=== PATIENT | male | born 1975 | race Two or more races ===

== ENCOUNTER 2018-08-03 16:51 | Inpatient (IN) | payer MEDICAID ==
[~2018-08-03] VITALS: Ht 175.3 cm; Wt 142.1 kg
[2018-08-03 16:55] VITALS: BP 124/67
[2018-08-03] MEDS ORDERED: Vancomycin 1.5gm/D5W 250ml 250 ML IVPB ONE ×2 (18:30→22:45)
[2018-08-03 19:33] VITALS: BP 117/63
[2018-08-03 19:37] LABS: BASOPHILS % (AUTO) 0.6 % (0.0-2.0); EOSINOPHILS % (AUTO) 1.9 % (0.0-3.0); HEMATOCRIT 39.7 % (42.0-52.0); HEMOGLOBIN 13.4 G/DL (14.2-18.0); LYMPHOCYTES % (AUTO) 19.6 % (20.0-45.0); MEAN CORPUSCULAR VOLUME 91 FL (80-99); MONOCYTES % (AUTO) 5.9 % (1.0-10.0); PLATELET COUNT 251 K/UL (150-450); RED BLOOD COUNT 4.34 M/UL (4.70-6.10); RED CELL DISTRIBUTION WIDTH 11.8 % (11.6-14.8); WHITE BLOOD COUNT 9.6 K/UL (4.8-10.8)
[2018-08-03 19:40] LABS: APPEARANCE,URINE SLIGHTLY CLOUDY; BILIRUBIN, URINE 1+ (NEGATIVE); COLOR,URINE BROWN; GLUCOSE, URINE (UA) NEGATIVE (NEGATIVE); KETONES,URINE 1+ (NEGATIVE); LEUKOCYTE ESTERASE ,URINE 1+ (NEGATIVE); NITRITE,URINE NEGATIVE (NEGATIVE); PH,URINE 5 (4.5-8.0); PROTEIN,URINE 2+ (NEGATIVE); UROBILINOGEN,URINE 8 MG/DL (0.0-1.0)
[2018-08-03 19:47] LABS: ANION GAP 3 mmol/L (5-15); BLOOD UREA NITROGEN 11 mg/dL (7-18); CALCIUM 8.7 MG/DL (8.5-10.1); CARBON DIOXIDE 34 MMOL/L (21-32); CHLORIDE 104 MMOL/L (98-107); CREATININE 0.7 MG/DL (0.55-1.30); POTASSIUM 3.9 MMOL/L (3.5-5.1); SODIUM 141 MMOL/L (136-145)
[2018-08-03 19:52] LABS: ALANINE AMINOTRANSFERASE 40 U/L (12-78); ALBUMIN 2.5 G/DL (3.4-5.0); ALBUMIN/GLOBULIN RATIO 0.7 (1.0-2.7); ALKALINE PHOSPHATASE 75 U/L (46-116); ASPARTATE AMINO TRANSFERASE 56 U/L (15-37); BILIRUBIN,TOTAL 0.3 MG/DL (0.2-1.0)
[2018-08-03 20:48] VITALS: BP 122/76
--- NOTE | 2018-08-03 22:01 | Emergency Room Report ---
History of Present Illness General Chief Complaint: Pain Source: Patient, EMS Present Illness HPI 43-year-old male presents to ED for evaluation. Coming from the streets with testicular pain and swelling 5 days. States he cut his testicle on a barbed fence while climbing it. States there is persistent pain and swelling to the scrotum since. 9 out of 10, throbbing, nonradiating. States he went to another emergency room twice since the injury and was discharged. Denies fevers or chills. No other aggravating relieving factors. Denies any other associated symptoms Allergies: Coded Allergies: No Known Allergies (Unverified , 08/03/18) Patient History Past Medical History: none Past Surgical History: none Pertinent Family History: none Social History: Denies: smoking, alcohol use, drug use Immunizations: UTD Reviewed Nursing Documentation: PMH: Agreed; PSxH: Agreed Nursing Documentation-PMH Past Medical History: No Stated History Review of Systems All Other Systems: negative except mentioned in HPI Physical Exam Vital Signs Date Time Temp Pulse Resp B/P (MAP) Pulse Ox O2 Delivery O2 Flow Rate FiO2 08/03/18 16:47 98.0 88 18 140/90 98 Room Air 98.1 Sp02 EP Interpretation: reviewed, normal General Appearance: no apparent distress, alert, GCS 15, non-toxic Head: normocephalic Eyes: bilateral eye normal inspection, bilateral eye PERRL ENT: normal ENT inspection Neck: normal inspection Respiratory: normal inspection Cardiovascular #1: normal inspection Gastrointestinal: normal inspection Rectal: deferred Genitourinary: other - scrotal swelling/induration. TTP Musculoskeletal: back normal, gait/station normal, normal range of motion, non- tender Neurologic: alert, oriented x3, responsive, motor strength/tone normal, sensory intact, speech normal Psychiatric: normal inspection Skin: normal inspection Lymphatic: normal inspection Medical Decision Making Diagnostic Impression: Primary Impression: Pain Additional Impressions: Scrotal abscess Testicular torsion ER Course Hospital Course 43 yo M presents with scrotal pain/swelling x 5 days. Differential diagnoses include: abscess, torsion, epididymitis Clinical course Patient placed on stretcher. hall monitor. After initial history and physical I ordered ultrasound Scrotal ultrasound shows significant edema and no flow to either testes. Concerning for bilateral torsion Labs - no leukocytosis, Hb/Hct stable, electrolytes ok Patient given broad-spectrum antibiotics. Discussed case with Urology; likely that testes are not salvageable given symptoms started [address] Corcoran will consult on case Case discussed with Dr. Fuentes and he agreed to accept the patient to his service for further care and support I feel this is a highly complex case requiring extensive working including EKG/ Rhythm strip, Xray/CT/US, Blood/urine lab work, repeat exams while in ED, and administration of strong opiates/narcotics for pain control, admission to hospital or close patient follow up. Diagnosis - pain, scrotal abscess, testicular torsion Patient admitted to floor in serious condition Labs Test 08/03/18 18:50 White Blood Count 9.6 K/UL (4.8-10.8) Red Blood Count 4.34 M/UL (4.70-6.10) Hemoglobin 13.4 G/DL (14.2-18.0) Hematocrit 39.7 % (42.0-52.0) Mean Corpuscular Volume 91 FL (80-99) Mean Corpuscular Hemoglobin 30.8 PG (27.0-31.0) Mean Corpuscular Hemoglobin Concent 33.7 G/DL (32.0-36.0) Red Cell Distribution Width 11.8 % (11.6-14.8) Platelet Count 251 K/UL (150-450) Mean Platelet Volume 7.0 FL (6.5-10.1) Neutrophils (%) (Auto) 72.0 % (45.0-75.0) Lymphocytes (%) (Auto) 19.6 % (20.0-45.0) Monocytes (%) (Auto) 5.9 % (1.0-10.0) Eosinophils (%) (Auto) 1.9 % (0.0-3.0) Basophils (%) (Auto) 0.6 % (0.0-2.0) Urine Color Brown Urine Appearance Slightly cloudy Urine pH 5 (4.5-8.0) Urine Specific [place] 1.025 (1.005-1.035) Urine Protein 2+ (NEGATIVE) Urine Glucose (UA) Negative (NEGATIVE) Urine Ketones 1+ (NEGATIVE) Urine Blood 1+ (NEGATIVE) Urine Nitrite Negative (NEGATIVE) Urine Bilirubin 1+ (NEGATIVE) Urine Ictotest Negative (NEGATIVE) Urine Urobilinogen 8 MG/DL (0.0-1.0) Urine Leukocyte Esterase 1+ (NEGATIVE) Urine RBC 2-4 /HPF (0 - 0) Urine WBC 0-2 /HPF (0 - 0) Urine Squamous Epithelial Cells None /LPF (NONE/OCC) Urine Amorphous Sediment Few /LPF (NONE) Urine Bacteria Few /HPF (NONE) Sodium Level 141 MMOL/L (136-145) Potassium Level 3.9 MMOL/L (3.5-5.1) Chloride Level 104 MMOL/L (98-107) Carbon Dioxide Level 34 MMOL/L (21-32) Anion Gap 3 mmol/L (5-15) Blood Urea Nitrogen 11 mg/dL (7-18) Creatinine 0.7 MG/DL (0.55-1.30) Estimat Glomerular Filtration Rate > 60 mL/min (>60) Glucose Level 107 MG/DL (74-106) Lactic Acid Level 0.70 mmol/L (0.4-2.0) Calcium Level 8.7 MG/DL (8.5-10.1) Total Bilirubin 0.3 MG/DL (0.2-1.0) Aspartate Amino Transf (AST/SGOT) 56 U/L (15-37) Alanine Aminotransferase (ALT/SGPT) 40 U/L (12-78) Alkaline Phosphatase 75 U/L (46-116) Total Protein 6.0 G/DL (6.4-8.2) Albumin 2.5 G/DL (3.4-5.0) Globulin 3.5 g/dL Albumin/Globulin Ratio 0.7 (1.0-2.7) CT/MRI/US Diagnostic Results CT/MRI/US Diagnostic Results : Imaging Test Ordered: Scrotal US Impression No blood flow is demonstrated in the left and right testes. There is extensive scrotal edema. There appears to be bilateral testicular edema There is right hydrocele. The left and right epididymis is not identified. The right testes measures 4.3 x 2.7 x 3.1 cm. The left testes measures 4.0 x 2.3 x 2.9 cm. Last Vital Signs Date Time Temp Pulse Resp B/P (MAP) Pulse Ox O2 Delivery O2 Flow Rate FiO2 08/03/18 20:48 98.2 69 15 122/76 100 Room Air 98.2 Status: improved Disposition: HOME, SELF-CARE Condition: Stable Referrals: NOT CHOSEN IPA/MD,REFERRING (PCP) Ubaldo Eldridge MD Aug 03, 2018 22:01
[2018-08-03] MEDS ORDERED: Piperacillin/Tazobactam 3.375 GM in D5W 110 ML IVPB SCH (22:30)
[2018-08-03] MEDS ORDERED: Acetaminophen 500mg (ES) tab ORAL PRN (23:30)
--- NOTE | 2018-08-04 00:15 | Consultation ---
DATE OF CONSULTATION: 08/03/2018 UROLOGY CONSULTATION CONSULTING PHYSICIAN: Gee Corcoran M.D. REFERRING PHYSICIAN: Leidy Fuentes M.D. CHIEF COMPLAINT/HISTORY OF PRESENT ILLNESS: I was asked by Dr. Fuentes to evaluate this 43-year-old gentleman regarding history of scrotal swelling and infection in the setting of a recent injury. Briefly, the patient presented to the hospital with history of 5 days of scrotal pain and swelling. He reports that he slipped down an embankment and somehow injured himself. There was no direct blow to the testicles or exposed skin during the injury, but afterwards he developed persistent pain and scrotal swelling. Eventually, he presents to the emergency room here and workup for the same revealed the findings described above. As such, I was asked to evaluate the patient. PAST MEDICAL HISTORY: Otherwise unremarkable. PAST SURGICAL HISTORY: None. MEDICATIONS: Please see the chart for current medications and administration details. Briefly, the patient has been placed on Zosyn and vancomycin for antibiotic coverage. ALLERGIES: No known drug allergies. SOCIAL HISTORY: Unremarkable tobacco, alcohol, or drug use. FAMILY HISTORY: Noncontributory. REVIEW OF SYSTEMS: A 14-system review of systems is essentially unremarkable outside of what was described above. PHYSICAL EXAMINATION: GENERAL: The patient is a middle-aged gentleman, awake, alert, in no obvious distress, and oriented x4. HEENT: NC/AT. EOMI. Oropharynx clear. NECK: Supple. Full range of motion. CHEST: Within normal limits. ABDOMEN: Soft, nontender, nondistended. Somewhat obese. EXTREMITIES: Normally perfused. No cyanosis, clubbing, or edema. BACK: No CVA tenderness to percussion. NEUROLOGIC: Grossly nonfocal. GENITOURINARY: Reveals circumcised male phallus. There is no evidence of lesions, discharge, or curvature. There is marked scrotal swelling with tenderness to palpation. There is some erythema consistent with cellulitis. There is no evidence of an obvious or facudno abscess collection. There is no evidence of Dejuan gangrene. There is no crepitus of the scrotal wall or the abdominal wall. The testes are difficult to palpate secondary to the amount of edema present. LABORATORY DATA: White blood cell count 9.6, hematocrit 39.7, platelets 251,000. Sodium 141, potassium 3.9, chloride 104, bicarbonate 34, BUN 11, creatinine 0.7, glucose 107, calcium 8.7. LFTs within normal limits. Urinalysis, specific gravity 1.025, pH 5.0. Dip test notable for 2+ protein, 1+ ketones, 1+ occult blood, 1+ bilirubin, and 1+ leukocyte esterase. Microanalysis with 2-4 red blood cells per high-power field and few bacteria seen. Scrotal ultrasound with marked scrotal wall edema and no blood flow appreciable to either testicle on preliminary read. ASSESSMENT AND PLAN: In summary, the patient is a 43-year-old gentleman with history of a fall and injury after which he developed scrotal edema and tenderness. Five days later, he presents here for evaluation of the same. Physical exam reveals scrotal wall thickening, swelling, and erythema consistent with cellulitis. There is no evidence of an abscess, Dejuan gangrene, or other acute process. Laboratory data is essentially unremarkable. Diagnostic imaging reveals the findings described above. It appears to me that this patient is suffering from severe scrotal cellulitis and edema. It is very unlikely that he has bilateral testicular torsion as this would be almost unheard of especially in a gentleman of his age. There is also no reason for this to happen given the nature of his fall and injury. It is much more likely that the patient developed a slight injury/infection, which over the course of the last few days has developed into a worsening issue. There does not appear to be an abscess, or Dejuan gangrene to excise at this time. I agree with the choice of Zosyn and vancomycin for antibiotic coverage. Additionally, I will add some Lasix to decrease the patient's edema. We will continue surveillance for him regarding this at this time even if testicular torsion did exist given the 5-day history of the above. Thank you for allowing me to participate in the care of this unfortunate gentleman. Please do not hesitate to contact me for any questions that you may further have regarding his care. I will be happy to see him with you as needed. Gee Corcoran M.D. DR: Celia JOB#: [id number] CC:
[2018-08-04] MEDS ORDERED: NKM (01:56)
[2018-08-04] MEDS ORDERED: Vancomycin 1.5gm/D5W 250ml 250 ML IVPB SCH (02:00)
[2018-08-04 04:00] VITALS: BP 112/63
[2018-08-04] MEDS: Vancomycin 1.5gm/D5W 250ml 250 ML IVPB SCH ×3 (04:55→21:16)
[2018-08-04 08:00] VITALS: BP 149/76
[2018-08-04] MEDS: Piperacillin/Tazobactam 3.375 GM in D5W 110 ML IVPB SCH ×2 (09:19→18:29)
[2018-08-04] MEDS: Pantoprazole Inj IVP SCH (09:19)
[2018-08-04] MEDS: Heparin 5000 units/ml inj SUBQ SCH ×2 (09:20→21:17)
[2018-08-04 09:33] LABS: BASOPHILS % (AUTO) 0.5 % (0.0-2.0); EOSINOPHILS % (AUTO) 2.4 % (0.0-3.0); HEMATOCRIT 41.4 % (42.0-52.0); HEMOGLOBIN 13.8 G/DL (14.2-18.0); LYMPHOCYTES % (AUTO) 14.7 % (20.0-45.0); MEAN CORPUSCULAR VOLUME 90 FL (80-99); MONOCYTES % (AUTO) 4.4 % (1.0-10.0); PLATELET COUNT 246 K/UL (150-450); RED BLOOD COUNT 4.59 M/UL (4.70-6.10); RED CELL DISTRIBUTION WIDTH 11.8 % (11.6-14.8)
[2018-08-04 09:53] LABS: ANION GAP 3 mmol/L (5-15); BLOOD UREA NITROGEN 9 mg/dL (7-18); CALCIUM 8.2 MG/DL (8.5-10.1); CARBON DIOXIDE 33 MMOL/L (21-32); CHLORIDE 105 MMOL/L (98-107); CHOLESTEROL 148 MG/DL (< 200); CREATININE 0.6 MG/DL (0.55-1.30); HDL CHOLESTEROL 36 MG/DL (40-60); POTASSIUM 3.3 MMOL/L (3.5-5.1); SODIUM 141 MMOL/L (136-145); TRIGLYCERIDES 99 MG/DL (30-150)
[2018-08-04 12:00] VITALS: BP 129/69
--- NOTE | 2018-08-04 13:12 | Diagnostic Imaging Report ---
Indication:Scrotal pain Technique: Real time grayscale and duplex Doppler imaging of the scrotum performed. Comparison: None Findings: The size, contour, and echogenicitiy of the testis appear normal bilaterally. There is no testicular mass. There is no dopplerable blood flow within the testis on this examination. However based on all of the images seen, there is virtually no flow in any of the soft tissue structures within the testis or in the scrotal wall. There is a moderate degree of scrotal edema and evidence of cellulitis and would expect to see blood flow. Therefore, the only reasonable conclusion is the finding of absence of testicular blood flow is technically related rather than reflective of truly absent blood flow. The study should and will be be repeated. This was discussed with Dr. Fuentes via telephone. Per our conversation, the clinical impression by the consulting urologist was similar in that there was no clinical suspicion of testicular torsion after his evaluation. The right testis measures 4.4 x 2.8 x 3.1 cm. Left testis 4 x 2.2 x 2.9 cm. The epididymides appear unremarkable. There is no scrotal abscess identified. There is no hydrocele or other abnormal fluid collections identified. IMPRESSION: Technically poor examination not allowing for adequate Doppler evaluation for torsion. Study will be repeated. Strongly disagree with the preliminary interpretation by humaira. The final results were conveyed to Dr. Fuentes, the admitting physician via telephone on 08/04/2018.
--- NOTE | 2018-08-04 14:56 | History & Physical ---
History and Physical History & Physicial Present Illness HPI 43-year-old male presents to ED for evaluation. [place] the streets with testicular pain and swelling 5 days. States he cut his testicle on a barbed fence while climbing it. States there is persistent pain and swelling to the scrotum since. 9 out of 10, throbbing, nonradiating. States he went to another emergency room twice since the injury and was discharged. Denies fevers or chills. No other aggravating relieving factors. Denies any other associated symptoms Allergies: Coded Allergies: No Known Allergies (Unverified , 08/03/18) Patient History Past Medical History: none Past Surgical History: none Pertinent Family History: none Social History: Denies: smoking, alcohol use, drug use Immunizations: UTD Reviewed Nursing Documentation: PMH: Agreed; PSxH: Agreed Nursing Documentation-PMH Past Medical History: No Stated History Review of Systems All Other Systems: negative except mentioned in HPI Physical Exam Vital Signs Date Time Temp Pulse Resp B/P (MAP) Pulse Ox O2 Delivery O2 Flow Rate FiO2 08/03/18 16:47 98.0 88 18 140/90 98 Room Air 98.1 Sp02 EP Interpretation: reviewed, normal General Appearance: no apparent distress, alert, GCS 15, non-toxic Head: normocephalic Eyes: bilateral eye normal inspection, bilateral eye PERRL ENT: normal ENT inspection Neck: normal inspection Respiratory: normal inspection Cardiovascular #1: normal inspection Gastrointestinal: normal inspection Rectal: deferred Genitourinary: other - scrotal swelling/induration. TTP Musculoskeletal: back normal, gait/station normal, normal range of motion, non- tender Neurologic: alert, oriented x3, responsive, motor strength/tone normal, sensory intact, speech normal Psychiatric: normal inspection Skin: normal inspection Lymphatic: normal inspection A/P: 1- Diffuse cellulitis of Perineal/Scrotal region, 2- Morbidly obese Plan: agree with current prophylactic antibiotic Leidy Fuentes MD Aug 04, 2018 14:56
[2018-08-04 16:00] VITALS: BP 110/64
--- NOTE | 2018-08-04 17:24 | Infectious Diseases Prog Note ---
Assessment/Plan Problems: (1) Scrotal abscess Assessment & Plan: will start zosyn and vancomycin with close monitor of his symptoms (2) Testicular torsion Assessment & Plan: possible as per US findings, urology is following, continue wide spectrum antibiotics (3) Pain Assessment & Plan: and swelling of the testicles due to the above, continue pain management and lasix as per urology Subjective Allergies: Coded Allergies: No Known Allergies (Unverified , 08/03/18) Objective Vital Signs Last 24 Hour Vital Signs Date Time Temp Pulse Resp B/P (MAP) Pulse Ox O2 Delivery O2 Flow Rate FiO2 08/04/18 16:00 99.0 87 22 110/64 (79) 95 99.0 08/04/18 12:00 98.4 87 22 129/69 (89) 94 98.4 08/04/18 09:00 Room Air 08/04/18 08:00 98.2 92 22 149/76 (100) 97 98.2 08/04/18 04:00 97.2 76 21 112/63 (79) 92 97.2 08/04/18 01:30 Room Air 08/03/18 20:48 98.2 69 15 122/76 100 Room Air 98.2 08/03/18 20:48 98.2 69 15 122/76 100 Room Air 08/03/18 19:33 98.1 72 18 117/63 98 Room Air 98.1 Height (Feet): 5 Height (Inches): 9.00 Weight (Pounds): 280 Laboratory Tests Test 08/03/18 18:50 08/04/18 09:25 White Blood Count 9.6 K/UL (4.8-10.8) 9.0 K/UL (4.8-10.8) Red Blood Count 4.34 M/UL (4.70-6.10) L 4.59 M/UL (4.70-6.10) L Hemoglobin 13.4 G/DL (14.2-18.0) L 13.8 G/DL (14.2-18.0) L Hematocrit 39.7 % (42.0-52.0) L 41.4 % (42.0-52.0) L Mean Corpuscular Volume 91 FL (80-99) 90 FL (80-99) Mean Corpuscular Hemoglobin 30.8 PG (27.0-31.0) 30.0 PG (27.0-31.0) Mean Corpuscular Hemoglobin Concent 33.7 G/DL (32.0-36.0) 33.3 G/DL (32.0-36.0) Red Cell Distribution Width 11.8 % (11.6-14.8) 11.8 % (11.6-14.8) Platelet Count 251 K/UL (150-450) 246 K/UL (150-450) Mean Platelet Volume 7.0 FL (6.5-10.1) 7.1 FL (6.5-10.1) Neutrophils (%) (Auto) 72.0 % (45.0-75.0) 78.0 % (45.0-75.0) H Lymphocytes (%) (Auto) 19.6 % (20.0-45.0) L 14.7 % (20.0-45.0) L Monocytes (%) (Auto) 5.9 % (1.0-10.0) 4.4 % (1.0-10.0) Eosinophils (%) (Auto) 1.9 % (0.0-3.0) 2.4 % (0.0-3.0) Basophils (%) (Auto) 0.6 % (0.0-2.0) 0.5 % (0.0-2.0) Urine Color Brown Urine Appearance Slightly cloudy Urine pH 5 (4.5-8.0) Urine Specific [place] 1.025 (1.005-1.035) Urine Protein 2+ (NEGATIVE) H Urine Glucose (UA) Negative (NEGATIVE) Urine Ketones 1+ (NEGATIVE) H Urine Blood 1+ (NEGATIVE) H Urine Nitrite Negative (NEGATIVE) Urine Bilirubin 1+ (NEGATIVE) H Urine Ictotest Negative (NEGATIVE) Urine Urobilinogen 8 MG/DL (0.0-1.0) H Urine Leukocyte Esterase 1+ (NEGATIVE) H Urine RBC 2-4 /HPF (0 - 0) H Urine WBC 0-2 /HPF (0 - 0) Urine Squamous Epithelial Cells None /LPF (NONE/OCC) Urine Amorphous Sediment Few /LPF (NONE) H Urine Bacteria Few /HPF (NONE) Sodium Level 141 MMOL/L (136-145) 141 MMOL/L (136-145) Potassium Level 3.9 MMOL/L (3.5-5.1) 3.3 MMOL/L (3.5-5.1) L Chloride Level 104 MMOL/L (98-107) 105 MMOL/L (98-107) Carbon Dioxide Level 34 MMOL/L (21-32) H 33 MMOL/L (21-32) H Anion Gap 3 mmol/L (5-15) L 3 mmol/L (5-15) L Blood Urea Nitrogen 11 mg/dL (7-18) 9 mg/dL (7-18) Creatinine 0.7 MG/DL (0.55-1.30) 0.6 MG/DL (0.55-1.30) Estimat Glomerular Filtration Rate > 60 mL/min (>60) > 60 mL/min (>60) Glucose Level 107 MG/DL (74-106) H 124 MG/DL (74-106) H Lactic Acid Level 0.70 mmol/L (0.4-2.0) Calcium Level 8.7 MG/DL (8.5-10.1) 8.2 MG/DL (8.5-10.1) L Total Bilirubin 0.3 MG/DL (0.2-1.0) Aspartate Amino Transf (AST/SGOT) 56 U/L (15-37) H Alanine Aminotransferase (ALT/SGPT) 40 U/L (12-78) Alkaline Phosphatase 75 U/L (46-116) Total Protein 6.0 G/DL (6.4-8.2) L Albumin 2.5 G/DL (3.4-5.0) L Globulin 3.5 g/dL Albumin/Globulin Ratio 0.7 (1.0-2.7) L Hemoglobin A1c 5.9 % (4.3-6.0) Triglycerides Level 99 MG/DL (30-150) Cholesterol Level 148 MG/DL (< 200) LDL Cholesterol 93 mg/dL (<100) HDL Cholesterol 36 MG/DL (40-60) L Cholesterol/HDL Ratio 4.1 (3.3-4.4) Current Medications Medications (Trade) Dose Ordered Sig/[place] Route PRN Reason Start Time Stop Time Status Last Admin Dose Admin Acetaminophen (Tylenol) 500 mg Q4H PRN ORAL Mild Pain/Temp > 100.5 08/03/18 23:30 09/02/18 23:29 Furosemide (Lasix) 20 mg DAILY IV 08/04/18 06:00 09/03/18 05:59 08/04/18 09:36 Heparin Sodium (Porcine) (Heparin 5000 units/ml) 5,000 units EVERY 12 HOURS SUBQ 08/04/18 09:00 09/03/18 08:59 08/04/18 09:20 Morphine Sulfate (Morphine Sulfate) 2 mg Q8HR PRN IVP For Pain 08/03/18 23:30 08/10/18 23:29 Ondansetron HCl (Zofran) 4 mg Q4H PRN IVP Nausea & Vomiting 08/03/18 23:30 09/02/18 23:29 Pantoprazole (Protonix) 40 mg DAILY IVP 08/04/18 09:00 09/03/18 08:59 08/04/18 09:19 Piperacillin Sod/ Tazobactam Sod 3.375 gm/Dextrose 110 ml @ 27.5 mls/hr Q8H IVPB 08/04/18 08:00 08/11/18 07:59 08/04/18 09:19 Vancomycin HCl (Vanco rx to dose) 1 ea DAILY PRN MISC Per rx protocol 08/03/18 22:30 09/02/18 22:29 Vancomycin HCl/ Dextrose 250 ml @ 167 mls/hr Q8H IVPB 08/04/18 05:00 08/09/18 04:59 08/04/18 14:30 Jose Luis Hernandez M.D. Aug 04, 2018 17:24
[2018-08-04] MEDS: Morphine Sulfate 2mg/ml Inj IVP PRN (18:38)
[2018-08-04 20:00] VITALS: BP 128/62
--- NOTE | 2018-08-04 22:45 | Consultation ---
DATE OF CONSULTATION: 08/04/2018 INFECTIOUS DISEASE CONSULTATION CONSULTING PHYSICIAN: Jose Luis Hernandez M.D. REFERRING PHYSICIAN: Leidy Fuentes M.D. REASON FOR CONSULTATION: Scrotal abscess with cellulitis and possible testicular torsion. Recommendation for antibiotics treatment. HISTORY OF PRESENT ILLNESS: The patient is a 43-year-old male with no past medical history, [place] [address], had scrotal infection in the setting of recent scrotal injury he sustained about five days ago when he slipped down on embankment and somehow injured his testicles. The patient was seen at [facility] last Friday. He was given Keflex and discharged home. His symptoms got worse. He returned back to the same emergency room. He received only pain medication and was discharged home. Last night, he continued to have significant pain, severe swelling in the scrotum, which prompted him to come to the emergency room at [facility] for evaluation and management. He was started on IV antibiotics and Infectious Disease consultation was requested for antibiotics treatment and further management. The patient denied any fever or chills. No recent trauma or blow to the testicle. REVIEW OF SYSTEMS: A 14-point of systems reviewed, were all negative apart from the one I mentioned above in my History and Physical. PAST MEDICAL HISTORY: Unremarkable. PAST SURGICAL HISTORY: Negative. ALLERGIES: He has no known drug allergy. SOCIAL HISTORY: The patient is homeless. Denied using any drugs, tobacco, or alcohol. FAMILY HISTORY: Noncontributory. MEDICATIONS: The patient received vancomycin and Zosyn in the emergency room. For the rest of his medications, please refer to MAR. LABORATORY DATA: White count 9000, hemoglobin 13.8, and platelet count 246,000. BUN 9, creatinine 0.6. Urinalysis showed +1 leukocyte esterase, wbc's 0 to 2, and few urine bacteria. IMAGING: Testicular ultrasound showed poor examination, not allowed for adequate Doppler evaluation for torsion. Study will be repeated. Strongly disagree with the preliminary interpretation. PHYSICAL EXAMINATION: VITAL SIGNS: Temperature 99, pulse 87, respirations 22, and blood pressure 110/64. Saturation 95% on room air. GENERAL: A young male, morbidly obese, lying in bed. Emotional and anxious. HEENT: Normocephalic and atraumatic. Pupils are equally reactive to light. Moist oral mucosa. No exudate. NECK: Supple. No lymphadenopathy. CARDIOVASCULAR: Regular rate and rhythm. No murmur. LUNGS: Clear bilaterally. No wheezing. No rhonchi. ABDOMEN: Soft, nontender, and nondistended. Normal bowel sounds. No hepatosplenomegaly or ascites. EXTREMITIES: No edema. No cyanosis. GENITOURINARY: Extremely swollen testicle with redness of the scrotum. Unable to palpate due to extreme pain. ASSESSMENT AND RECOMMENDATION: 1. Scrotal abscess with cellulitis. We will start the patient on vancomycin and Zosyn empirically pending blood culture. The patient is being followed by urologist. 2. Possible testicular torsion. The patient is already covered with wide spectrum antibiotics. Ultrasound will be repeated to confirm. Urology is following. 3. Testicular pain and swelling. Continue pain management and diuretics as per Urology. Thank you for the consult. ID will continue to follow. Jose Luis Hernandez M.D. DR: OLINDA JOB#: [id number] CC:
[2018-08-05] VITALS: BP 122/77
[2018-08-05] MEDS: Piperacillin/Tazobactam 3.375 GM in D5W 110 ML IVPB SCH ×4 (00:31→23:47)
[2018-08-05 04:00] VITALS: BP 116/71
[2018-08-05] MEDS: Morphine Sulfate 2mg/ml Inj IVP PRN ×2 (04:59→22:43)
[2018-08-05] MEDS: Vancomycin 1.5gm/D5W 250ml 250 ML IVPB SCH ×3 (05:22→20:26)
[2018-08-05 08:00] VITALS: BP 132/70
[2018-08-05] MEDS: Pantoprazole Inj IVP SCH (08:37)
[2018-08-05] MEDS: Heparin 5000 units/ml inj SUBQ SCH ×2 (09:53→20:31)
[2018-08-05 12:00] VITALS: BP 112/71
--- NOTE | 2018-08-05 15:37 | Infectious Diseases Prog Note ---
Assessment/Plan Problems: (1) Scrotal abscess Assessment & Plan: continue zosyn and vancomycin empirically with close monitor of his symptoms , urology is following (2) Testicular torsion Assessment & Plan: possible as per US findings, urology is following, continue wide spectrum antibiotics (3) Pain Assessment & Plan: and swelling of the testicles due to the above, continue pain management and lasix as per urology Subjective Constitutional: Reports: no symptoms HEENT: Reports: no symptoms Respiratory: Reports: no symptoms Breasts: Reports: no symptoms Cardiovascular: Reports: no symptoms Gastrointestinal/Abdominal: Reports: no symptoms Genitourinary: Reports: dysuria, other - scrotal swelling and redness Neurologic: Reports: no symptoms Psychiatric: Reports: no symptoms Skin: Reports: no symptoms Endocrine: Reports: no symptoms Hematologic: Reports: no symptoms Allergies: Coded Allergies: No Known Allergies (Unverified , 08/03/18) Objective Vital Signs Last 24 Hour Vital Signs Date Time Temp Pulse Resp B/P (MAP) Pulse Ox O2 Delivery O2 Flow Rate FiO2 08/05/18 12:00 98.2 92 20 112/71 (85) 97 98.2 08/05/18 11:01 Room Air 08/05/18 09:00 Room Air 08/05/18 08:00 98.5 93 20 132/70 (90) 95 98.5 08/05/18 04:00 97.5 82 17 116/71 (86) 96 97.5 08/05/18 00:00 98.2 94 20 122/77 (92) 97 98.2 08/04/18 21:00 Room Air 08/04/18 20:00 98.4 93 17 128/62 (84) 93 98.4 08/04/18 19:08 99.0 08/04/18 18:38 99.0 08/04/18 16:00 99.0 87 22 110/64 (79) 95 99.0 Height (Feet): 5 Height (Inches): 9.00 Weight (Pounds): 313 General Appearance: WD/WN, no acute distress HEENT: normocephalic, atraumatic, anicteric, mucous membranes moist, PERRL Respiratory/Chest: chest wall non-tender, lungs clear, normal breath sounds, no respiratory distress, no accessory muscle use Cardiovascular: normal peripheral pulses, normal rate, regular rhythm, no gallop/murmur, no JVD Abdomen: normal bowel sounds, soft, non tender, no organomegaly, non distended , no mass, no scars Genitourinary: other - swollen scrotum and red skin with local tenderness Extremities: no cyanosis, no clubbing Skin: no rash, no lesions, no ulcers Neurologic/Psychiatric: alert, oriented x 3, responsive Lymphatic: no neck adenopathy, no groin adenopathy Musculoskeletal: normal muscle bulk, no effusion Microbiology Date/Time Source Procedure Growth Status 08/03/18 19:05 Blood Blood Culture - Preliminary NO GROWTH AFTER 24 HOURS Resulted 08/03/18 18:50 Blood Blood Culture - Preliminary NO GROWTH AFTER 24 HOURS Resulted Laboratory Tests Test 08/05/18 04:07 Vancomycin Level Trough 14.2 ug/mL (5.0-12.0) H Current Medications Medications (Trade) Dose Ordered Sig/[place] Route PRN Reason Start Time Stop Time Status Last Admin Dose Admin Acetaminophen (Tylenol) 500 mg Q4H PRN ORAL Mild Pain/Temp > 100.5 08/03/18 23:30 09/02/18 23:29 Furosemide (Lasix) 20 mg DAILY IV 08/04/18 06:00 09/03/18 05:59 08/05/18 08:32 Heparin Sodium (Porcine) (Heparin 5000 units/ml) 5,000 units EVERY 12 HOURS SUBQ 08/04/18 09:00 09/03/18 08:59 08/05/18 09:53 Morphine Sulfate (Morphine Sulfate) 2 mg Q8HR PRN IVP For Pain 08/03/18 23:30 08/10/18 23:29 08/05/18 04:59 Ondansetron HCl (Zofran) 4 mg Q4H PRN IVP Nausea & Vomiting 08/03/18 23:30 09/02/18 23:29 Pantoprazole (Protonix) 40 mg DAILY IVP 08/04/18 09:00 09/03/18 08:59 08/05/18 08:37 Piperacillin Sod/ Tazobactam Sod 3.375 gm/Dextrose 110 ml @ 27.5 mls/hr Q8H IVPB 08/04/18 08:00 08/11/18 07:59 08/05/18 08:41 Vancomycin HCl (Vanco rx to dose) 1 ea DAILY PRN MISC Per rx protocol 08/03/18 22:30 09/02/18 22:29 Vancomycin HCl/ Dextrose 250 ml @ 167 mls/hr Q8H IVPB 08/04/18 05:00 08/09/18 04:59 08/05/18 13:41 Jose Luis Hernandez M.D. Aug 05, 2018 15:37
[2018-08-05 16:00] VITALS: BP 125/81
[2018-08-05 20:00] VITALS: BP 135/68
--- NOTE | 2018-08-05 22:41 | General Progress Note ---
Progress Note Progress Note No events AFVSS PE- abd soft, NT, ND - scrotum with decreased edema, less erythema. Still TTP but less than before. No Dejuan's, abscess etc. Ext WWP A/P- Scrotal cellulitis and edema in the setting of fall Improving on abx Cont same/ Lasix If further improved tomorrow consider d/c. Gee Corcoran M.D. Aug 05, 2018 22:41
[2018-08-06] VITALS: BP 140/79
[2018-08-06 04:00] VITALS: BP 127/75
[2018-08-06] MEDS: Vancomycin 1.5gm/D5W 250ml 250 ML IVPB SCH ×3 (04:48→20:38)
[2018-08-06 08:44] VITALS: BP 131/95
[2018-08-06] MEDS: Heparin 5000 units/ml inj SUBQ SCH ×2 (09:07→20:47)
[2018-08-06] MEDS: Pantoprazole Inj IVP SCH (09:09)
[2018-08-06] MEDS: Piperacillin/Tazobactam 3.375 GM in D5W 110 ML IVPB SCH ×3 (09:10→23:11)
[2018-08-06 11:27] VITALS: BP 125/79
[2018-08-06 15:28] VITALS: BP 141/83
--- NOTE | 2018-08-06 17:16 | General Progress Note ---
Assessment/Plan Assessment/Plan S: my pain is better O: appears comfortable, Interval of redness and swelling in scrotal area. General Appearance: no apparent distress, alert, GCS 15, non-toxic Head: normocephalic Eyes: bilateral eye normal inspection, bilateral eye PERRL ENT: normal ENT inspection Neck: normal inspection Respiratory: normal inspection Cardiovascular #1: normal inspection Gastrointestinal: normal inspection Rectal: deferred Genitourinary: other - scrotal swelling/induration. TTP Musculoskeletal: back normal, gait/station normal, normal range of motion, non- tender Neurologic: alert, oriented x3, responsive, motor strength/tone normal, sensory intact, speech normal Psychiatric: normal inspection Skin: normal inspection Lymphatic: normal inspection A/P: 1- Diffuse cellulitis of Perineal/Scrotal region, 2- Morbidly obese Plan: agree with current prophylactic antibiotic DC tomorrow Subjective Allergies: Coded Allergies: No Known Allergies (Unverified , 08/03/18) Objective Last 24 Hour Vital Signs Date Time Temp Pulse Resp B/P (MAP) Pulse Ox O2 Delivery O2 Flow Rate FiO2 08/06/18 15:28 98.6 91 20 141/83 (102) 95 08/06/18 11:27 98.8 83 20 125/79 (94) 96 08/06/18 09:28 92 08/06/18 09:00 Room Air 08/06/18 08:44 98.2 119 20 131/95 (107) 95 08/06/18 04:00 97.7 86 18 127/75 (92) 94 08/06/18 00:00 97.7 85 20 140/79 (99) 95 08/05/18 21:00 Room Air 08/05/18 20:00 98.1 90 18 135/68 (90) 95 Intake and Output 08/05/18 08/06/18 19:00 07:00 Intake Total 520 ml 970.0 ml Balance 520 ml 970.0 ml Intake Oral 360 ml IV Total 610.0 ml Other 520 ml # Voids 3 5 Height (Feet): 5 Height (Inches): 9.00 Weight (Pounds): 313 Leidy Fuentes MD Aug 06, 2018 17:16
[2018-08-06 20:00] VITALS: BP 152/83
[2018-08-06] MEDS: Morphine Sulfate 2mg/ml Inj IVP PRN (20:38)
[2018-08-07] VITALS: BP 121/71
[2018-08-07 04:00] VITALS: BP 137/76
[2018-08-07] MEDS: Vancomycin 1.5gm/D5W 250ml 250 ML IVPB SCH ×3 (05:37→14:15)
[2018-08-07] MEDS: Pantoprazole Inj IVP SCH (07:59)
[2018-08-07 08:00] VITALS: BP 122/63
[2018-08-07] MEDS: Heparin 5000 units/ml inj SUBQ SCH (08:00)
--- NOTE | 2018-08-07 08:23 | General Progress Note ---
Progress Note Progress Note No events AFVSS PE- abd soft, NT, ND - scrotum with sig decreased edema, no erythema. Markedly decreased TTP. Dejuan's, abscess etc. Ext WWP A/P- Scrotal cellulitis and edema in the setting of fall, now sig improved. Cont abx and home with same. Rpt scrotal US Consider d/c home if o/w well. Gee Corcoran M.D. Aug 07, 2018 08:23
[2018-08-07] MEDS: Piperacillin/Tazobactam 3.375 GM in D5W 110 ML IVPB SCH ×2 (10:42→16:00)
--- NOTE | 2018-08-07 11:24 | General Progress Note ---
Assessment/Plan Assessment/Plan S: my pain is better O: appears comfortable, Interval of redness and swelling in scrotal area. General Appearance: no apparent distress, alert, GCS 15, non-toxic Head: normocephalic Eyes: bilateral eye normal inspection, bilateral eye PERRL ENT: normal ENT inspection Neck: normal inspection Respiratory: normal inspection Cardiovascular #1: normal inspection Gastrointestinal: normal inspection Rectal: deferred Genitourinary: other - scrotal swelling/induration. TTP Musculoskeletal: back normal, gait/station normal, normal range of motion, non- tender Neurologic: alert, oriented x3, responsive, motor strength/tone normal, sensory intact, speech normal Psychiatric: normal inspection Skin: normal inspection Lymphatic: normal inspection A/P: 1- Diffuse cellulitis of Perineal/Scrotal region, 2- Morbidly obese Plan: agree with current prophylactic antibiotic DC tomorrow PO antibiotic regiment, per ID service Subjective Allergies: Coded Allergies: No Known Allergies (Unverified , 08/03/18) Objective Last 24 Hour Vital Signs Date Time Temp Pulse Resp B/P (MAP) Pulse Ox O2 Delivery O2 Flow Rate FiO2 08/07/18 04:00 98.4 78 20 137/76 (96) 95 08/07/18 00:00 97.8 96 18 121/71 (88) 95 08/06/18 21:00 Room Air 08/06/18 20:00 99.2 90 20 152/83 (106) 97 08/06/18 15:28 98.6 91 20 141/83 (102) 95 08/06/18 11:27 98.8 83 20 125/79 (94) 96 Intake and Output 08/06/18 08/07/18 18:59 06:59 Intake Total 960 ml 1427.0 ml Output Total 3425 ml 3500 ml Balance -2465 ml -2073.0 ml Intake Oral 960 ml 900 ml IV Total 527.0 ml Output Urine Total 3425 ml 3500 ml Height (Feet): 5 Height (Inches): 9.00 Weight (Pounds): 313 Leidy Fuentes MD Aug 07, 2018 11:24
[2018-08-07 12:05] VITALS: BP 150/75
[2018-08-07] MEDS ORDERED: AUGMENTIN 875-1 EAC1 ORAL ×2 (14:38→14:39)
--- NOTE | 2018-08-07 15:08 | Infectious Diseases Prog Note ---
Assessment/Plan Problems: (1) Scrotal abscess Assessment & Plan: ruled out, most likely cellulitis , will switch zosyn and vancomycin empirically to augmentin for 14 more days , close monitor of his symptoms , F/U with urology (2) Testicular torsion Assessment & Plan: ruled out with improvement of his symptoms clinically on antibiotics . (3) Pain Assessment & Plan: and swelling of the testicles improving, continue pain management and lasix as per urology Subjective Constitutional: Reports: no symptoms HEENT: Reports: no symptoms Respiratory: Reports: no symptoms Breasts: Reports: no symptoms Cardiovascular: Reports: no symptoms Gastrointestinal/Abdominal: Reports: no symptoms Genitourinary: Reports: other - swollen scrotum with less pain and edema Neurologic: Reports: no symptoms Psychiatric: Reports: no symptoms Skin: Reports: no symptoms Endocrine: Reports: no symptoms Hematologic: Reports: no symptoms Musculoskeletal: Reports: no symptoms Allergies: Coded Allergies: No Known Allergies (Unverified , 08/03/18) Objective Vital Signs Last 24 Hour Vital Signs Date Time Temp Pulse Resp B/P (MAP) Pulse Ox O2 Delivery O2 Flow Rate FiO2 08/07/18 12:05 98.1 96 20 150/75 (100) 98 08/07/18 09:00 Room Air 08/07/18 08:00 98.1 92 20 122/63 (82) 98 08/07/18 04:00 98.4 78 20 137/76 (96) 95 08/07/18 00:00 97.8 96 18 121/71 (88) 95 08/06/18 21:00 Room Air 08/06/18 20:00 99.2 90 20 152/83 (106) 97 08/06/18 15:28 98.6 91 20 141/83 (102) 95 Height (Feet): 5 Height (Inches): 9.00 Weight (Pounds): 313 General Appearance: WD/WN, no acute distress HEENT: normocephalic, atraumatic, anicteric, mucous membranes moist, PERRL Respiratory/Chest: chest wall non-tender, lungs clear, normal breath sounds, no respiratory distress, no accessory muscle use Cardiovascular: normal peripheral pulses, normal rate, regular rhythm, no gallop/murmur, no JVD Abdomen: normal bowel sounds, soft, non tender, no organomegaly, non distended , no mass, no scars Genitourinary: other - enlarged scrotum Extremities: no cyanosis, no clubbing Skin: no rash, no lesions, no ulcers Neurologic/Psychiatric: alert, responsive Current Medications Medications (Trade) Dose Ordered Sig/[place] Route PRN Reason Start Time Stop Time Status Last Admin Dose Admin Acetaminophen (Tylenol) 500 mg Q4H PRN ORAL Mild Pain/Temp > 100.5 08/03/18 23:30 09/02/18 23:29 Furosemide (Lasix) 20 mg DAILY IV 08/04/18 06:00 09/03/18 05:59 08/07/18 07:59 Heparin Sodium (Porcine) (Heparin 5000 units/ml) 5,000 units EVERY 12 HOURS SUBQ 08/04/18 09:00 09/03/18 08:59 08/07/18 08:00 Morphine Sulfate (Morphine Sulfate) 2 mg Q8HR PRN IVP For Pain 08/03/18 23:30 08/10/18 23:29 08/06/18 20:38 Ondansetron HCl (Zofran) 4 mg Q4H PRN IVP Nausea & Vomiting 08/03/18 23:30 09/02/18 23:29 Pantoprazole (Protonix) 40 mg DAILY IVP 08/04/18 09:00 09/03/18 08:59 08/07/18 07:59 Piperacillin Sod/ Tazobactam Sod 3.375 gm/Dextrose 110 ml @ 27.5 mls/hr Q8H IVPB 08/04/18 08:00 08/11/18 07:59 08/07/18 10:42 Potassium Chloride (K-Dur) 40 meq DAILY ORAL 08/07/18 12:00 09/06/18 11:59 08/07/18 12:52 Vancomycin HCl (Vanco rx to dose) 1 ea DAILY PRN MISC Per rx protocol 08/03/18 22:30 09/02/18 22:29 Vancomycin HCl/ Dextrose 250 ml @ 167 mls/hr Q8H IVPB 08/04/18 05:00 08/09/18 04:59 08/07/18 14:15 Jose Luis Hernandez M.D. Aug 07, 2018 15:08
[2018-08-07] MEDS ORDERED: NS 500ML ONE (16:16)
[2018-08-07] MEDS ORDERED: Tubing IV Secondary IV ONE (16:16)
--- NOTE | 2018-08-08 13:03 | Discharge Summary ---
Discharge Summary Discharge Summary _ DATE OF ADMISSION: 08/03/2018 DATE OF DISCHARGE 08/07/2018 REASON FOR ADMISSION: 43 years old male without significant past medical history, presented to emergency room for evaluation due to testicular pain and swelling for five days. Patient reported that he cut his testicle on the fence while he was climbing in. Patient reported persistent pain and scrotal swelling . Pain reported as 9 out of 10, throbbing and nonradiating. No fever ,no chills. Upon evaluation vital signs were stable. Laboratory workup revealed no leukocytosis , stable hemoglobin and hematocrit, essentially stable chemistry. Lactic acid 0.7 Testicular ultrasound revealed thickened hyperemic scrotum , most likely secondary to scrotal cellulitis; negative for evidence of testicular torsion or other testicular abnormality. Patient admitted with diagnoses of scrotal cellulitis. CONSULTANTS: ID specialist Urologist Dr. Corcoran [facility] COURSE: Patient admitted. Patient started on empiric antibiotics. ID specialist closely followed. Blood culture were negative. Patient was on IV antibiotics while in the hospital and switched to oral antibiotics upon discharge to complete the course as per infectious disease doctor recommendations. Pain management was addressed, and pain was controlled. Urologist seen and evaluated patient , and closely followed throughout the patient's stay in the hospital. No evidence of abscess, Dejuan gangrene or other acute process. Per urologist , patient was suffering from severe scrotal cellulitis. Urologist added Lasix to antibiotics to decrease severe edema. DVT/GI prophylaxis provided. Patient clinically improved : significantly decreased scrotal edema ,no further erythema, markedly decreased tenderness to palpation. Patient was stable for discharge home on oral antibiotics FINAL DIAGNOSES: Diffuse scrotal cellulitis Morbid obesity Scrotal pain secondary to scrotal cellulitis DISCHARGE MEDICATIONS: See Medication Reconciliation list. DISCHARGE INSTRUCTIONS: Patient was discharged home. Follow up with primary care provider in one week. I have been assigned to dictate discharge summary for this account. I was not involved in the patient's management. Yadira Villalobos NP Aug 08, 2018 13:03
== END 2018-08-07 16:17 | disposition home or self-care (01) | DRG 501 ==
LOC: EDBD 16:51 → EMR 17:49 → 3E 18:52 → EDBEDREQ 19:03 → 4E 20:54
DX: N49.2 Inflammatory disorders of scrotum (principal); E66.01 Morbid (severe) obesity due to excess calories; N50.82 Scrotal pain; Z59.0 Homelessness; W17.81XS Fall down embankment (hill), sequela; Z68.42 Body mass index [BMI] 45.0-49.9, adult
CPT/HCPCS: 36415; 76870; 80048; 80053; 80061; 80202; 81003; 83036; 83605; 85025; 87040; 87081; 96361; 96365; 99285; J8499